=== PATIENT | male | born 1980 | race Caucasian/White ===

== ENCOUNTER 2023-12-19 08:11 | Outpatient (CLI) | payer BC, SELFPAY ==
--- NOTE | ~2023-12-19 | US_ITS ---
EXAMINATION: US soft tissue head and neck DATE: 12/19/2023 08:56 INDICATION: Dysphagia. TECHNIQUE: Multiple ultrasound images of the thyroid were obtained. COMPARISON: None. FINDINGS: The right thyroid lobe measures 5.0 x 2.0 x 2.1 cm. The left thyroid lobe measures 4.0 x 2.0 x 1.7 c m. There is a 14 mm solid, hypoechoic, wider than tall nodule with ill-defined margin without echoge barry foci (TI-RADS TR4). IMPRESSION: 1. Small thyroid nodule. Thyroid ultrasound is recommended in one year. Reviewed, dictated and finalized at location A.
--- NOTE | ~2023-12-19 | US_ITS ---
US right upper quadrant INDICATION: Elevated liver enzymes PROCEDURE: Realtime right upper abdominal ultrasound. COMPARISON: No prior studies for comparison. FINDINGS: The pancreas is normal without focal mass or pancreatic ductal dilation. Liver echotexture is increased, consistent with fatty infiltration. There is normal directional flow in the portal ve in. The gallbladder is normal without stones, gallbladder wall thickening or pericholecystic fluid. Comm on bile duct measures 3 mm. No sonographic Roberts's sign. IMPRESSION: 1: Fatty infiltration of the liver. Reviewed, dictated and finalized at location B.
== END 2023-12-19 08:12 | disposition home or self-care (01) ==
LOC: CHSIMG 08:15
PROVIDERS: PCP Family Medicine; Visit Provider Nurse Practitioner
DX: R13.13 Dysphagia, pharyngeal phase (principal); R79.89 Other specified abnormal findings of blood chemistry; E04.1 Nontoxic single thyroid nodule; K76.0 Fatty (change of) liver, not elsewhere classified
CPT/HCPCS: 76536; 76705